=== PATIENT | female | born 1955 | race African-American/Black ===

== ENCOUNTER 2017-02-06 10:53 | Day surgery (SDC) | payer OTHER ==
[2017-01-29 14:54] VITALS: BMI 22.4
[2017-02-06] MEDS ORDERED: LIDOCAINE HCL/PF 2% SDV 5ML VIAL ONE (11:53)
[2017-02-06] MEDS ORDERED: PROPOFOL 20 ML ONE (11:53)
[2017-02-06] MEDS ORDERED: MIDAZOLAM HCL 2 MG/2 ML SINGLE DOSE VIAL ONE (11:56)
[2017-02-06] MEDS ORDERED: ONDANSETRON 4 MG/2 ML VIAL ONE (13:08)
[2017-02-06] MEDS ORDERED: LACTATED RINGERS SOLUTION 1,000 ML IV SCH (13:30)
[2017-02-06] MEDS ORDERED: ACETAMINOPHEN 325 MG TABLET (FP) PO PRN (13:46)
[2017-02-06] MEDS ORDERED: ONDANSETRON 4 MG/2 ML VIAL IVPUSH PRN (13:47)
[2017-02-06 15:09] VITALS: TEMP 98
[2017-02-06 15:18] VITALS: BP 121/66; PULSE 77
--- NOTE | 2017-02-07 18:45 | OP ---
DATE OF OPERATION: PREOPERATIVE DIAGNOSIS: Left ring trigger finger. POSTOPERATIVE DIAGNOSIS: Left ring trigger finger. PROCEDURE: Left ring trigger finger release. SURGEON: Jack Crisostomo M.D. ANESTHESIA: Local with sedation. COMPLICATIONS: None. ESTIMATED BLOOD LOSS: Minimal. INDICATION FOR PROCEDURE: The patient is a 61-year-old female with the above findings indicated for operative treatment. Risks, benefits, and alternatives were discussed with patient at length, informed consent was obtained. PROCEDURE: After proper identification of the patient's correct operative site, patient brought to the operating room, placed supine on the table, all bony prominences well padded. Sedation was given by the anesthesiologist, local anesthesia given 2% lidocaine. Left upper extremity was prepped and draped in the usual sterile fashion. Well padded tourniquet was placed with a sterile prep. Esmarch bandage to exsanguinate the left upper extremity. Tourniquet inflated to 250 mmHg. A longitudinal incision was made over the A1 raoul of the ring finger. The incision was sharp through the skin, blunt and sharp dissection of subcutaneous tissues. A1 raoul was identified and divided longitudinally. Patient was asked to flex and extend her finger, and no finger triggering was noted. Wound was irrigated with saline and repaired with a 5-0 nylon suture. A sterile dressing was applied. The patient was reversed from anesthesia and brought to the recovery room in stable condition. She tolerated the procedure well. JACK CRISOSTOMO M.D. [id number]
== END 2017-02-06 14:30 | disposition home or self-care (01) ==
LOC: FASU 10:53
PROVIDERS: ATTEND Orthopaedic Surgery Hand Surgery
PROC: 0LN80ZZ Release Left Hand Tendon, Open Approach (ICD-10-PCS; principal; 2017-02-06 13:07)
DX: M65.342 Trigger finger, left ring finger (principal)

== ENCOUNTER 2017-08-07 07:47 | Day surgery (SDC) | payer OTHER ==
[2017-08-05 09:20] VITALS: BMI 22.6
[2017-08-07] MEDS ORDERED: MIDAZOLAM HCL 2 MG/2 ML SINGLE DOSE VIAL ONE ×2 (08:30→09:05)
[2017-08-07] MEDS ORDERED: PROPOFOL 20 ML ONE (09:04)
[2017-08-07] MEDS ORDERED: DEXAMETHASONE SOD PHOSPHATE 4 MG/1 ML VIAL ONE (09:05)
[2017-08-07] MEDS ORDERED: KETOROLAC TROMETHAMINE 30 MG/1 ML VIAL ONE (09:05)
[2017-08-07] MEDS ORDERED: ONDANSETRON 4 MG/2 ML VIAL ONE (09:05)
[2017-08-07] MEDS ORDERED: LIDOCAINE HCL 2% (50ML VIAL) INF ONE (09:21)
[2017-08-07 10:07] VITALS: TEMP 97.7
[2017-08-07] MEDS ORDERED: LIDOCAINE HCL/PF 2% SDV 5ML VIAL ONE (10:08)
[2017-08-07] MEDS ORDERED: ePHEDrine SULFATE 50 MG/1 ML AMPULE ONE (10:15)
[2017-08-07 10:25] VITALS: BP 132/76; PULSE 92
[2017-08-07] MEDS ORDERED: ACETAMINOPHEN 325 MG TABLET (FP) PO PRN (10:59)
[2017-08-07] MEDS ORDERED: ONDANSETRON 4 MG/2 ML VIAL IVPUSH PRN (10:59)
[2017-08-07] MEDS ORDERED: oxyCODONE HCL 5 MG TABLET PO PRN ×2 (10:59)
[2017-08-07] MEDS ORDERED: LACTATED RINGERS SOLUTION 1,000 ML IV SCH (11:00)
--- NOTE | 2017-08-09 07:14 | OP ---
DATE OF OPERATION: 08/07/2017 PREOPERATIVE DIAGNOSES: 1. Left ring recurrent trigger finger. 2. Left carpal tunnel syndrome. POSTOPERATIVE DIAGNOSES: 1. Left ring recurrent trigger finger. 2. Left carpal tunnel syndrome. OPERATIVE PROCEDURE: 1. Left ring revision trigger finger release. 2. Left carpal tunnel release. ANESTHESIA: Local with sedation. COMPLICATIONS: None. ESTIMATED BLOOD LOSS: Minimal. INDICATION FOR PROCEDURE: The patient is a 61-year-old female with the above finding indicated for operative treatment. Risks, benefits, alternatives were discussed with patient at length. Proper informed consent was obtained. DESCRIPTION OF PROCEDURE: After proper identification of patient, correct operative site, patient was brought to the operating room and supine on the operating table with prominences well padded. Sedation was given by the anesthesiologist. Local anesthesia was given, 2% lidocaine. The left upper extremity was prepped and draped in sterile fashion. Well-padded tourniquet was placed over the sterile prep, Esmarch bandage used to exsanguinate the left upper extremity. Tourniquet was inflated to 250 mmHg. Longitudinal incision was made over the proximal aspect of the palm. Incision was made sharply through the skin with blunt and sharp dissection through subcutaneous tissues. Palmar fascia was divided longitudinally. Transverse carpal ligament along with the distal 4 cm of antebrachial fascia were divided longitudinally under direct visualization with loupe magnification. This provided complete release of the median nerve at the wrist. Wound was irrigated with saline and repaired with a 5-0 nylon suture. Second incision was made over the A1 raoul to the ring finger. This was slightly longer than the prior incision. Incision was taken sharply through the skin with blunt and sharp dissection through subcutaneous tissues. Extensive scar tissue was noted compressing the flexor tendon sheath again. This was released, with release of the entire fibroosseous sheath from the midpalm to the A2 raoul. The patient was then asked to flex and extend her finger after she was completely awake, and no further triggering was noted. Wound was irrigated with saline and repaired with 5-0 nylon suture. Sterile dressings were applied. Patient was reversed from anesthesia and brought to recovery in stable condition. She tolerated the procedure well. Ivana [id number]
== END 2017-08-07 10:35 | disposition home or self-care (01) ==
LOC: FASU 07:47
PROVIDERS: ATTEND Orthopaedic Surgery Hand Surgery
PROC: 0LN80ZZ Release Left Hand Tendon, Open Approach (ICD-10-PCS; 2017-08-07)
PROC: 01N50ZZ Release Median Nerve, Open Approach (ICD-10-PCS; principal; 2017-08-07 09:21)
DX: G56.02 Carpal tunnel syndrome, left upper limb (principal); M65.342 Trigger finger, left ring finger